=== PATIENT | female | born 1985 | race Caucasian/White ===

== ENCOUNTER 2021-11-09 10:35 | Emergency (ER) | payer BC, SELFPAY ==
--- NOTE | 2021-11-09 11:09 | ED.URI ---
HPI - URI/Sore Throat General Stated Complaint: sorethroat Source: patient and RN notes reviewed Mode of arrival: ambulatory Limitations: no limitations History of Present Illness MD elicited complaint: cough and sore throat Related Data Allergies Allergy/AdvReac Type Severity Reaction Status Date / Time No Known Allergies Allergy Verified 07/09/21 13:52 Review of Systems Review of Systems: CONSTITUTIONAL: Denies malaise, chills, sweats, or fever. EYES: Denies visual changes, redness, or discharge. ENT: Reports rhinorrhea, congestion, sinus pain, otalgia and sore throat. CARDIOVASCULAR: Denies chest pain, palpitations, or edema. RESPIRATORY: Reports cough. Denies dyspnea. GASTROINTESTINAL: Denies abdominal pain, nausea, vomiting, diarrhea SKIN: Denies rash or itching. MUSCULOSKELETAL: Denies myalgia. NEUROLOGIC: Denies headache. All systems reviewed & are unremarkable except as noted in HPI and below PMFSH Past Medical History Medical History Anxiety Depression HLD (hyperlipidemia) HTN (hypertension), benign Surgical History Surgical History History of cardiac radiofrequency ablation History of delivery History of cholecystectomy Social History Social History Second hand tobacco smoke exposure: No Alcohol intake: current Drinks per week: 4 Substance use: former Substance use type: does not use and marijuana Last use: daily Gender identity (if verbalized by the patient): Female Comments At time of signature, agree with nursing past medical, surgical, social and family history. There is no relevant family history pertinent to the presenting complaint Exam Narrative: GENERAL: Well-appearing, well-nourished, and in no acute distress. HEAD: Normocephalic EYES: PERRLA, conjunctivae clear ENT: Nares clear, turbinates edematous and erythematous, clear discharge. Mucous membranes moist. TM pearly cardoso with dull light reflex bilaterally; no tragal tenderness. Oropharynx not erythematous without lesions. Tonsils not enlarged and without exudate, no drooling, no hoarseness, no trismus, uvula midline. NECK: Supple. No lymphadenopathy CHEST: Clear to auscultation, breath sounds equal. No wheezing, rhonchi, rales, or stridor. No respiratory distress, speaks in full sentences. HEART: Regular rate and rhythm. No murmur heard. SKIN: Warm, dry, no rash. NEURO: Alert and oriented x3. PSYCH: Normal mood and affect Course Course Emergency Course: Patient is aware of diagnosis, understands and agrees to treatment plan. Anticipatory guidance given. Patient agrees to follow-up as directed and is aware of reasons to seek care at the emergency department. Portions of this record may have been created with voice recognition software Level of Care: Express Care Visit Vital Signs Vital signs: Reviewed. MDM - URI/Sore Throat MDM Narrative Medical decision making narrative: Differential diagnosis considered: Wilson virus, strep pharyngitis, allergic rhinitis, upper respiratory tract infection, sinusitis, rhinosinusitis, nasopharyngitis. viral pharyngitis, otitis media, otitis externa, pneumonia, bronchitis, viral cough syndrome, viral syndrome, and influenza. Exam findings show no acute concerns or changes; patient is non-toxic appearing and is in no distress. Patient is appropriate for outpatient treatment and follow-up. Lab Data Attestation: I reviewed the patient's lab results. Critical Care Time Critical Care Time Critical Care Time: No Discharge Plan Discharge Prescriptions: No Action labetalol 200 mg tablet 200 mg PO BID Qty: 1 RF: 0 amlodipine 5 mg tablet 5 mg PO DAILY Qty: 30 RF: 2 meclizine 25 mg tablet 25 mg PO BID PRN (Reason: motion sickness) Qty: 30 RF: 0
[2021-11-09 11:15] VITALS: BP 115/78; PULSE 94; RESP 18; TEMP 37.3; O2SAT 99
== END 2021-11-09 11:47 | disposition left against medical advice (07) ==
PROVIDERS: Emergency Provider Internal Medicine Hematology & Oncology; PCP Physician Assistant
DX: Z53.21 Procedure and treatment not carried out due to patient leaving prior to being seen by health care provider (principal)
CPT/HCPCS: 99199

== ENCOUNTER 2021-12-31 15:37 | Emergency (ER) | payer BC, SELFPAY ==
[2021-12-31 15:56] VITALS: BP 138/89; PULSE 77; RESP 18; TEMP 36.8; O2SAT 98
--- NOTE | 2021-12-31 16:15 | ED.URI ---
HPI - URI/Sore Throat General Chief Complaint: Upper Respiratory Infection Stated Complaint: cough,chest congestion Time Seen by Provider: 12/31/21 16:15 Source: patient Mode of arrival: ambulatory Limitations: no limitations History of Present Illness HPI Narrative: Ms. Grissom is a 36-year-old female patient presenting to the clinic today with complaints of sinus congestion cough and chest congestion x2 weeks. She denies any fever or chills. She reports that she has been having headaches. She is currently 33 weeks . She is coughing up some yellow phlegm. States that she has intermittent shortness of breath at times however she is not currently short of breath. MD elicited complaint: cough, rhinorrhea, nasal congestion and sinus pain Related Data Home Medications Medication Instructions Recorded Confirmed aspirin 81 mg chewable tablet 2 tablet DAILY 12/31/21 12/31/21 labetalol 200 mg tablet 200 tablet TID 12/31/21 12/31/21 ondansetron HCl 4 mg tablet 4 tablet Q6-12H 12/31/21 12/31/21 vit no.95-ferrous 1 tablet PO DAILY 12/31/21 12/31/21 fumarate 28 mg-folic acid 800 mcg tablet ( Multivitamins) sertraline 50 mg tablet 50 tablet DAILY 12/31/21 12/31/21 Allergies Allergy/AdvReac Type Severity Reaction Status Date / Time No Known Allergies Allergy Verified 12/31/21 16:21 Review of Systems Review of Systems: Pertinent positives per HPI. Patient denies any fever, chills, rash, headache, visual changes, dizziness, chest pain, palpitations, nausea, vomiting, diarrhea, constipation, abdominal pain, or any urinary issues. [facility] Past Medical History Medical History Anxiety Depression HLD (hyperlipidemia) HTN (hypertension), benign Surgical History Surgical History History of cardiac radiofrequency ablation History of delivery History of cholecystectomy Social History Social History Second hand tobacco smoke exposure: No Alcohol intake: current Drinks per week: 4 Substance use: former Substance use type: does not use and marijuana Last use: daily Gender identity (if verbalized by the patient): Female Comments At the time of my signature, I reviewed and agree with the nursing past medical, surgical, social, and family history. There is no relevant family history pertinent to the patient complaint. Exam Narrative: General: Well-developed, well nourished, in no apparent distress Head: Normocephalic, atraumatic Eyes: Pupils equally round and reactive to light bilaterally, EOM intact, sclera and conjunctive clear, no discharge, lids normal Ears: TMs intact and clear, ear canals clear, no drainage, grossly hearing normal. Nose: Nares patent, no discharge, no inflammation, sinus tenderness over the maxillary and frontal sinuses Mouth: Oral pharynx without lesions or masses, good dentition, MMM. Postnasal drip Neck: Supple, trachea midline, no enlargement of anterior or posterior cervical nodes, no thyroid masses or goiter palpable. Cardio: Regular rate and rhythm, s1 and s2 normal, no murmur appreciated. Resp: Clear to auscultation bilaterally, no rhonchi, rales, wheezing or rubs Course Course Emergency Course: Portions of this record may have been created with voice recognition software. Level of Care: Express Care Visit Vital Signs Vital signs: Vital Signs Temperature 36.8 C 12/31/21 15:56 Pulse Rate 77 12/31/21 15:56 Respiratory Rate 18 12/31/21 15:56 Blood Pressure 138/89 12/31/21 15:56 Pulse Oximetry 98 12/31/21 15:56 Oxygen Delivery Room Air 12/31/21 15:56 Temperature 36.8 C 12/31/21 15:56 Pulse Rate 77 12/31/21 15:56 Respiratory Rate 18 12/31/21 15:56 Blood Pressure 138/89 12/31/21 15:56 Pulse Oximetry 98 12/31/21 15:56
== END 2021-12-31 16:29 | disposition home or self-care (01) ==
PROVIDERS: Emergency Provider Nurse Practitioner Family; PCP Family Medicine
DX: R09.82 Postnasal drip (principal); J01.00 Acute maxillary sinusitis, unspecified; E78.5 Hyperlipidemia, unspecified; I10 Essential (primary) hypertension; F41.9 Anxiety disorder, unspecified; F32.A Depression, unspecified; Z79.82 Long term (current) use of aspirin
CPT/HCPCS: 99213; G0463

== ENCOUNTER 2024-06-27 15:45 | Outpatient (CLI) | payer OTHER, SELFPAY ==
--- NOTE | ~2024-06-27 | XR_ITS ---
XR hand LT min 3V Ordering provider: Za Mari PA-C History: . M79.645 - Pain in left finger(s) . Comparison: None. FINDINGS: BONES: No acute fracture or dislocation. JOINT SPACES: Well maintained. SOFT TISSUES: Unremarkable. IMPRESSION: No acute osseous abnormality left hand. Reviewed, dictated and finalized at location A. [facility] DAU[facility]
== END 2024-06-27 15:46 | disposition home or self-care (01) ==
LOC: MICIMG 15:45
PROVIDERS: PCP Family Medicine; Visit Provider Physician Assistant Medical
DX: M79.645 Pain in left finger(s) (principal)
CPT/HCPCS: 73130

== ENCOUNTER 2025-01-26 07:15 | Outpatient (CLI) | payer OTHER, SELFPAY ==
--- NOTE | ~2025-01-26 | MR_ITS ---
MRI of the brain Clinical History: Multiple sclerosis Technique: Axial and sagittal T1-weighted images were acquired. These were followed by axial T2-weigh sloan, diffusion weighted, gradient, and FLAIR images. Following intravenous administration of 16 cc Mu ltiHance gadolinium, T1-weighted fat-sat imaging was performed in the axial, coronal, and sagittal pl anes. Findings: There is a tiny FLAIR hyperintense focus in the left periventricular white matter (axial FL AIR image 14). No other distinct signal abnormality identified in the remainder of the brain parenchy ma. No acute infarct, intracranial hemorrhage, or mass lesion. Ventricles and subarachnoid spaces are unremarkable. Orbits are unremarkable. Paranasal sinuses and m astoid air cells are clear. Major intracranial flow voids are intact. Sagittal midline structures are intact. No abnormal postcontrast enhancement identified. IMPRESSION: Single tiny focus of FLAIR hyperintense signal with periventricular white matter, nonspecific. Minima l demyelinating disease is a consideration, versus minimal chronic microvascular ischemic change. Reviewed, dictated and finalized at location M. IMPRESSION: Single tiny focus of FLAIR hyperintense signal with periventricular white matte r, nonspecific. Minimal demyelinating disease is a consideration, versus minima l chronic microvascular ischemic change.
--- OUTSIDE RECORDS SUMMARY | 2025-01-26 07:18 | XMS_ITS | Referral Summary ---
Author Organization [facility] Address [address] [place] [id number] Care Team Providers Care Industrial Twisting Machine Operator Name Role Phone Brad Brody MD Primary Care Provider Allergies No known active allergies Medications pravastatin (PRAVACHOL) 10 mg tablet pravastatin 10 mg tablet Active labetaloL (NORMODYNE,BRUCE DATE) 200 mg tablet Take 200 mg by mouth every morning 0 Active hydroCHLOROthia zide (HYDRODIURIL) 25 mg tablet Take 25 mg by mouth daily 0 Active sertraline (ZOLOFT) 100 mg tablet sertraline 100 mg tablet Active buPROPion SR (WELLBUTRIN SR) 150 mg 12 hr tablet Take 150 mg by mouth 2 (two) times a day Active dicyclomine (BENTYL) 10 mg capsuleIndicati ons:Irritable Bowel Syndrome TAKE 1 CAPSULE (10 MG TOTAL) BY MOUTH 4 (FOUR) TIMES A DAY NEEDED (CRAMPING, DIARRHEA) 360 capsule 0 Active Active Problems Problem Noted Date Diagnosed Date SVT (supraventricular tachycardia) 11/07/2019 Uterine rupture during labor 11/07/2019 Essential hypertension 11/07/2019 Gallstone 11/07/2019 Abdominal pain 11/07/2019 Anxiety 11/07/2019 Irritable bowel syndrome with diarrhea 0 Fecal urgency 11/07/2019 S/P ablation operation for arrhythmia 04/26/2016 History of delivery 04/26/2016 Chronic hypertension with superimposed preeclamp ronald 07/22/2014 Social History Tobacco Use Types Packs/Day Years Used Date Smoking Tobacco: Never Assessed Alcohol Use Standard Drinks/Week Comments Not Currently 0 (1 standard drink = 0.6 oz pur e alcohol) Comments Unknown Sex and Gender Information Value Date Recorded Sex Assigned at Not on file Legal Sex Female 3:06 PM CDT Gender Identity Not on file Sexual Orientation Not on file Last Filed Vital Signs Vital Sign Reading Time Taken Comments Blood Pressure 128/80 11/07/2019 9:25 AM CDT Pulse 73 11/07/2019 9:25 AM CDT Temperature 36.7 C (98 F) 11/07/2019 9:25 AM CDT Respiratory Rate - - Oxygen Saturation 95% 11/07/2019 9:25 AM CDT Inhaled Oxygen Concentration - - Weight 71.9 kg (158 lb 9.6 oz) 11/07/2019 9:25 A M CDT Height 162.6 cm (5' 4) 11/07/2019 9:25 AM CDT Body Mass Index 27.22 11/07/2019 9:25 AM CDT Plan of Treatment Not on file Insurance CHOICE PR[place] PPO [place] Care Teams Industrial Twisting Machine Operator Relationship Specialty Start Date End Date Brad Brody MD [address] [facility] [address] [place] [address] PCP - General 11/07/19
--- OUTSIDE RECORDS SUMMARY | 2025-01-26 07:18 | XMS_ITS | Clinical Summary ---
Author Organization [facility] Address [address] [place] [id number] Care Team Providers Care Ad Terminal Makeup Operator Name Role Phone Brad Brody MD [...] Chronic hypertension with superimposed preeclamp ronald 07/22/2014 Surgical History Surgery Date Site/Laterality Comments CHOLECYSTECTOMY 07/24/2014 - 07/23/[address] UDY AND ABLATION 07/24/2006 - 07/23/2007 for SVT SECTION 07/24/2014 - 07/23/2015 Medical History Medical History Date Comments Gallstones Hypertension Anxiety disorder SVT (supraventricular tachycardia) Hyperlipidemia Family History Medical History Relation Name Comments Sauceda's esophagus Father Neuromyelitis Optica Mother Relation Name Status Comments Father Alive Mother Alive Social History Tobacco Use Types Packs/Day Years Used Date Smoking Tobacco: Never Assessed Alcohol Use Standard Drinks/Week Comments Not Currently 0 (1 standard drink = 0.6 oz pur e alcohol) Comments Unknown Sex and Gender Information Value Date Recorded Sex Assigned at Not on file Legal Sex Female 3:06 PM CDT Gender Identity Not on file Sexual Orientation Not on file Obstetrics History Last Filed Vital Signs Vital Sign Reading [...] 11/07/2019 9:25 AM CDT Plan of Treatment Health Maintenance Due Date Last Done Comments Cervical Cancer Screening 1987 Depression Screening 1987 Hepatitis C Screening 1987 Varicella Vaccines (1 of 2 - 13+ 2-dose series) 02/19/2000 Hepatitis B Screening 2005 Regular Well Visit/Exam 18-64 2005 Covid-19 Vaccine ( season) 2024 05/24/2021, 09/14/2020, 08/24/2020 Influenza Vaccine (#1) 2025 , 05/04/2017, 10/04/2016, Additional history exists DTaP/Tdap/Td Vaccine (3 - Td or Tdap) 10/24/2026 10/24/2016, 07/29/2014 Pneumococcal vaccine <65 Aged Out 07/29/2014 No longer eligible based on patient's age to complete this topic HPV Vaccines Aged Out No longer eligi ble based on patient's age to complete this topic Insurance [place] [employer] [place] Care Teams Ad Terminal Makeup Operator Relationship Specialty Start Date End Date Brad Brody MD [address] [facility] [address] [place] [address] PCP - General 11/07/19
--- OUTSIDE RECORDS SUMMARY | 2025-01-26 07:18 | XMS_ITS | Clinical Summary ---
Author Organization [facility] Address [address] [place] [address] Care Team Providers Care Barrel Bung Remover And Dumper Name Role Phone Brad Brody MD Primary Care Provider [phone] Brad Brody MD Unavailable Emilie Fatima DO Unavailable Source Comments [facility],non-owned Affiliates and Associated Physician Practices is amultiple site organization consisting of ambulatory clinics and hospital sitesin [place], [place], [place] and [place]. This disclosure is being madepursuant to the Care Everywhere program and may not contain all information available regarding this patient. Last updated 18.[facility] Allergies No known active allergies Medications * Be aware that medications may not be up to date on this document. Alwaysverify current medications with the patient. labetalol (NORMODYNE; TRANDATE) 200 MG tabletIndications:C hronic hypertension affecting (HCC) Take 1 (one) tablet by mouth 3 times daily 180 tablet 2 10/09/19 22 Active citalopram (CELEXA) 10 MG tabletIndications:D epression, unspecified depression type Take 1 (one) tablet by mouth once daily 90 tablet 4 12/18/19 22 Active Additional Information Patient not taking.Reported on 02/25/2022 neomycin-polymyxin- hc (CORTISPORIN) 3.5-02121-6 otic solution 01/07/20 Active docusate sodium (COLACE) 100 MG capsule Take 1 (one) capsule by mouth once daily 60 capsule 01/22/20 Active Additional Information Patient not taking.Reported on 02/25/2022 iron polysaccharides (NIFEREX 150) 150 MG capsule Take 1 (one) capsule by mouth once daily 100 capsule 01/22/20 Active polyethylene glycol 3350 (MIRALAX) 17 GM/SCOOP powder Take 17 (seventeen) g by mouth once daily 238 g 01/22/20 Active Additional Information Patient not taking.Reported on 02/25/2022 ibuprofen (MOTRIN) 600 MG tablet Take 1 (one) tablet by mouth every 6 hours as needed for Pain 30 tablet 01/22/20 Active plus iron (NATATAB) 29-1 MG tablet Take 1 (one) tablet by mouth once daily 30 tablet 3 01/22/20 Active oxyCODONE, immediate release, (ROXICODONE) 5 MG tablet Take 1 (one) tablet by mouth every 4 hours as needed for Pain 12 tablet 01/22/20 Active Additional Information Patient not taking.Reported on 02/25/2022 acetaminophen (TYLENOL) 500 MG capsule Take 2 (two) capsules by mouth every 6 hours as needed for Fever or Pain 50 capsule 01/22/20 22 Active sertraline (Zoloft) 50 MG tabletIndications:2 5 weeks gestation of (HCC) Take 1 (one) tablet by mouth once daily 90 tablet 4 02/26/20 22 Active Active Problems Patient Care Coordination No te Formatting of this note migh t be different from the original. When patient comes in for BP check, please notify a physician for BP lower than 110/60. We may need to back off on BP meds. eGrmaine Davidson MD 08/07/2014 11:37 AM Problem Noted Date Diagnosed Date History of delivery 04/26/2016 [facility] 04/26[facility]2016 Chronic hypertension affecting 016 S/P ablation operation for arrhythmia 04/26/2016 Chronic hypertension with superimposed preeclamp ronald 07/22/2014 Supervision of high-risk 07/19/2014 Overview (07/21/2014): Dated by 6w doc US A+/I/-/-, NR GCT nl GBS pend Hypertension 07/19/2014 SVT (supraventricular tachycardia) Failed trial of labor Uterine rupture during labor Immunizations Immunization Administration Dates Next Due Path101 primary monoval ent 12+ yr 0.3mL Purple cap 05/24/2021 INFLUENZA VACCINE 05/24/2021,08/10/2016 INFLUENZA VACCINE, TRIV. (FL UZONE; FLULAVAL; FLUARIX; AFLURIA TRIVALENT; 6MO+), 0.5 ML (IIV3) 07/25/2014 MMR 01/21/2022(Deferred: Patient Condition - Patient documented as Rubella immune) PNEUMOCOCCAL PPSV23 07/29/2014 TDAP (7yrs+) 01/21/2022(Deferred: Patient Condition - Patient documented as having already recieved Tdap vaccine),10/24/2016,07/29/2014 Family History Medical History Relation Name Comments Other - Neurologic Mother NMO Aneurysm, Brain Paternal Grandfather Relation Name Status Comments Father Alive barretts esopha mireya Maternal Grandfather Alive Maternal Grandmother Alive Mother Alive neuro myletis o shanelle, optic neuritis Paternal Grandfather Paternal Grandmother Sister Alive Social History Tobacco Use Types Packs/Day Years Used Date Smoking Tobacco: Former Cigarettes Smokeless Tobacco: Former Quit: 06/12/2014 Tobacco Cessation:Counseling Given: Yes Comments:4 cigaretts/ day Alcohol Use Standard Drinks/Week Comments No 0 (1 standard drink = 0.6 oz pur e alcohol) champane rare use [place] Depression Scale Answer Date Recorded RETIRED: Total Score 2 01/21/2022 Last EPDS Self Harm Result Not on file 01/21 Comments No Sex and Gender Information Value Date Recorded Sex Assigned at Not on file Legal Sex Female 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 Gender Identity Not on file Sexual Orientation Not on file 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 Not on file Not on file Last Filed Vital Signs Vital Sign Reading Time Taken Comments Blood Pressure 120/74 02/25/2022 3:12 PM CDT Pulse 73 01/21/2022 8:55 AM CDT Temperature 36.7 C (98 F) 01/21/2022 8:55 AM CDT Respiratory Rate 16 01/21/2022 8:55 AM CDT Oxygen Saturation 98% 01/21/2022 8:55 AM CDT Inhaled Oxygen Concentration - - Weight 76.2 kg (168 lb) 02/25/2022 3:12 PM CDT Height 162.6 cm (5' 4) 02/25/2022 3:12 PM CDT Body Mass Index 28.84 02/25/2022 3:12 PM CDT Plan of Treatment Health Maintenance Due Date Last Done Comments HEPATITIS B VACCINE (1 of 3 - 19+ 3-dose series) 2006 COVID-19 VACCINE ( season) 2024 05/24/2021 DEPRESSION SCREENING 07/24/2024 INFLUENZA VACCINE (#1) 2025 , 05/04/2017, 10/04/2016, Additional history exists PAP with HPV 02/09/2026 02/09/2021 DTAP/TDAP/TD VACCINES (3 - Td or Tdap) 10/24/2026 10/24/2016, 07/29/2014 ZOSTER VACCINE (1 of 2) 2037 PNEUMOCOCCAL VACCINE Aged Out 07/29/2014 No long er eligible based on patient's age to complete this topic HIV SCREENING Completed 11/19/2021, 06/24, 02/19/2021, Additional history exists HEPATITIS C SCREENING Completed 11/25/2021, 022 HIB VACCINE Aged Out No longer eligi ble based on patient's age to complete this topic HPV VACCINE Aged Out No longer eligi ble based on patient's age to complete this topic MENINGOCOCCAL (Group B) VACCINE SHARED DECISION-MAKING Aged Out No longer eligible based on patient's age to complete this topic MENINGOCOCCAL GROUPS A/C/Y/W VACCINE Aged Out No longer eligible based on patient's age to complete this topic Procedures Procedure Name Priority Date/Time Associated Diagnosis Comments HEPATITIS C RNA QUANTITATIVE AM Draw 11/25/2021 5:07 AM CDT Abnormal liver function tests HIV-1 HIV-2 ANTIBODY + HIV P24 AG PANEL Routine 11/19/2021 25 weeks gestation of HPV DETECTION HIGH RISK ANTON Routine 02/09/2021 4:23 PM CDT 8 weeks gestation of from Last 3 Months or Most Recently Relevant to Health Maintenance Results * HEPATITIS C RNA QUANTITATIVE (11/25/2021 5:07 AM CDT) Hepatitis C RNA PCR, Interp Not detected Not detected 11/29/2021 1:14 PM CDT [facility] Blood BLOOD SPECIMEN / Unknown Lab Venipuncture / Unknown 11/25/2021 5:07 AM CDT 11/25/2021 5:43 AM CDT Narrative [facility] - 11/29/2021 1:14 PM CDT The Hepatitis C viral (HCV) RNA analysis utilized a serum sample, real-time reverse project internship PCR, and is reported as Not Detected, Detected (<12 IU/mL), Quantity (IU/mL) or >30,000,000 IU/mL. The limit of quantitation of the assay is 12 IU/mL (100% of samples with this HCV RNA level were detected). The linear range is from 12 IU/mL to 30,000,000 IU/mL. Values less than 12 IU/mL are reported as Detected (<12 IU/mL). Values greater than 30,000,000 IU/mL are reported as >30,000,000 IU/mL. The detection/quantitation of HCV RNA in serum is based on the isolation of HCV RNA with reverse project internship of genomic HCV RNA followed by real-time PCR in the presence of an unrelated RNA internal control. The internal control ensures that RNA is isolated, and that no general significant inhibitors of the RT-PCR process are present. The analysis was performed using a U.S. FDA approved test methodology ([employer] Real Time HCV). us Vazquez Foster MD LAB - CHEMISTRY ORDERABLES Fin al Result [facility] [address] [place] [address], [facility] [phone] * HIV-1 HIV-2 ANTIBODY + HIV P24 AG PANEL (11/19/2021) Pathologist [facility] HIV Screen 4th Generation w Reflex NON-REACT MICHAEL NON-REACT MICHAEL QUEST Comment: HIV-1 antigen and HIV-1/HIV-2 antibodies were not detected. There is no laboratory evidence of HIV infection. PLEASE NOTE: This information has been disclosed to you from records whose confidentiality may be protected by state law. If your state requires such protection, then the state law prohibits you from making any further disclosure of the information without the specific written consent of the person to whom it pertains, or as otherwise permitted by law. A general authorization for the release of medical or other information is NOT sufficient for this purpose. For additional information please refer to http://education.Viacor/faq/FYP024 (This link is being provided for informational/ educational purposes only.) The performance of this assay has not been clinically validated in patients less than 2 years old. Test Performed at: [facility] [address] [place] [address] DARRIN CHRISTENSEN DO,MPH Blood BLOOD SPECIMEN / Unknown 11/19/2021 11/19/2021 12:42 PM CDT Andie Villarreal MD LAB - CHEMISTRY ORDERABLES F inal Result [facility] [address] [place] [address] * HPV DETECTION HIGH RISK ANTON (02/09/2021 4:23 PM CDT) Pathologist [facility] High Risk Human Papilloma Result Not detected Not detected 02/10/2021 4:29 PM CDT [facility] High Risk Human Papilloma Interp 02/10/2021 4:29 PM CDT [facility] Comment:High Risk Human Christopher lloma Virus was Not Detected. Pathology/Cytolo gy MISCELLANEOUS SAMPLES / Unknown 02/09/2021 4:23 PM CDT 02/10/2021 11:53 AM CDT Narrative [facility] - 02/10/2021 4:29 PM CDT Nucleic acid isolated from the specimen was analyzed with a nucleic acid amplification test (FDA approved Gen-Probe HPV Assay) to detect high risk human papilloma virus (Types: 16, 18, 31, 33, 35, 39, 45, 51, 52, 56, 58, 59, 66, and 68). The reference range is Not Detected. Comment: These test results should not be used as the sole basis for clinical assessment and treatment of patients. These results should always be correlated with other available data (cytology, histology, and clinical information). Gee Holder MD LAB - MICROBIOLOGY ORDERABLES Final Result [facility] [address] [facility] [place] [address], [facility] [phone] from Last 3 Months or Most Recently Relevant to Health Maintenance Insurance ANTHEM ANTHEM Member Subscriber Plan / Payer (Ef fective 2020-Present) Name:Marlyn oHffmann Relation to Subscriber:Self Name:Marlyn Hoffmann Payer ID:[id number] (NAIC) Type:PPO Address: [address] [place] [address] ANTHEM Member Subscriber Plan / Payer (Ef fective 2020-Present) Name:Marlyn Hoffmann Relation to Subscriber:Self Name:Marlyn Hoffmann Payer ID:[id number] (NAIC) Type:PPO Address: [address] [place] [id number] Advance Directives * Full Code (Latest Code Status on File) Date Activated Date Inactivated Comments 01/19/2022 6:52 AM 01/21/2022 4:47 PM * Full Code Date Activated Date Inactivated Comments 11/24/2021 1:17 PM 11/26/2021 4:23 PM * Full Code Date Activated Date Inactivated Comments 10/20/2016 10:06 AM 10/24/2016 6:24 PM * Full Code Date Activated Date Inactivated Comments 07/27/2016 3:24 PM 07/27/2016 6:01 PM * Full Code Date Activated Date Inactivated Comments 07/26/2014 4:41 PM 07/31/2014 3:44 PM Care Teams Barrel Bung Remover And Dumper Relationship Specialty Start Date End Date Brad Brody MD [address] [place] [address] PCP - General Family Medicine 01/19/22 Brad Brody MD [address] [place] [address] 01/19/22 Emilie Fatima DO [address] [facility] [address] [place] [address] Cardiovascular Disease 09/24/21
== END 2025-01-26 07:16 | disposition home or self-care (01) ==
PROVIDERS: PCP Family Medicine; Visit Provider Psychiatry & Neurology Neurology
DX: G35 Multiple sclerosis (principal); Z86.73 Personal history of transient ischemic attack (TIA), and cerebral infarction without residual deficits; E78.5 Hyperlipidemia, unspecified; Z86.79 Personal history of other diseases of the circulatory system
CPT/HCPCS: 70553; A9577

== ENCOUNTER 2025-02-28 08:07 | Outpatient (CLI) | payer OTHER, SELFPAY ==
--- OUTSIDE RECORDS SUMMARY | 2025-02-28 08:11 | XMS_ITS | Clinical Summary ---
Author Organization [facility] Address [address] [place] [id number] Care Team Providers Care Knifeman Name Role Phone Brad Brody MD Primary [...] Screening 2005 Regular Well Visit/Exam 18-64 2005 HPV Vaccines (1 - 3-dose SCDM series) 2014 Covid-19 Vaccine ( season) 2024 05/24/2021, 09/14/2020, 08/24/2020 Influenza Vaccine (#1) 2025 , 05/04/2017, 10/04/2016, Additional history exists DTaP/Tdap/Td Vaccine (3 - Td or Tdap) 10/24/2026 10/24/2016, 07/29/2014 Pneumococcal vaccine <65 Aged Out 07/29/2014 No longer eligible based on patient's age to complete this topic Insurance [place] Care Teams Knifeman Relationship Specialty Start Date End Date Brad Brody MD [address] [facility] [address] [place] [address] PCP - General 11/07/19
--- OUTSIDE RECORDS SUMMARY | 2025-02-28 08:11 | XMS_ITS | Patient Health Record ---
Author Organization [facility] Address [address] [facility] [address] [place] [address] Care Team Providers Care Micro Computer Data Processor Name Role Phone Ingrid Morocho Unavailable [phone] Reason For Referral No Information Medications Medication SIG (Take, Route, Frequency, Duration) Notes Start Date End Date Status GaviLyte-G 236 GM Oral *Reorder from [facility] for eRx and Interaction Alerts* 11/07/2019 Active Labetalol HCl 200 MG Oral 11/07/2019 Active Pravastatin Sodium 10 MG Oral 11/07/2019 Active Sertraline HCl 100 MG Oral 11/07/2019 Active buPROPion HCl ER (XL) 150 MG Oral 11/07/2019 Active Benzonatate 200 MG Oral 11/07/2019 Active hydroCHLOROthiazide 25 MG Oral 11/07/2019 Active Wellbutrin XL 150 MG Oral 11/07/2019 Active Dicyclomine HCl 10 MG Oral 11/07/2019 Active Plan Of Treatment No Information Insurance Providers Payer Name Payer Address Payer Phone Subscriber Number Group Number Insured Name Patient Relationship to Insured Coverage Start Date Coverage End Date Aetna Pos [address] [facility] [address] [id number] ZEINA HOFFMANN Spouse - patient is the spouse of the insured Medical (General) History Surgical History Surgery Date(Month/Year) Heart surgery SVT Ablation 07/24/2006
--- OUTSIDE RECORDS SUMMARY | 2025-02-28 08:11 | XMS_ITS | Clinical Summary ---
Author Organization [facility] [employer] Address [address] [place] [address] Care Team Providers Care Finishing Range Supervisor Name Role Phone Brad Brody MD Primary Care Provider [phone] Brad Brody MD Unavailable Emilie Fatima DO Unavailable [phone] Source Comments [facility],non-owned Affiliates and Associated Physician Practices is amultiple site organization consisting of ambulatory clinics and hospital sitesin [place], [place], [place] and [place]. This disclosure is being madepursuant to the Care Everywhere program and may not contain all information available regarding this patient. Last updated 18.[facility] [employer]) Allergies No known active allergies Medications * [...] not taking.Reported on 02/25/2022 neomycin-polymyxin- hc (CORTISPORIN) 3.5-14210-3 otic solution 01/07/20 Active docusate sodium (COLACE) [...] need to back off on BP meds. Germaine Davidson MD 08/07/2014 11:37 AM Problem Noted Date Diagnosed Date History of delivery 04/26/2016 [facility] Chronic hypertension affecting 016 S/P ablation operation for arrhythmia 04/26/2016 Chronic hypertension with superimposed preeclamp ronald 07/22/2014 Supervision of high-risk 07/19/2014 Overview (07/21/2014): Dated by 6w doc US A+/I/-/-, NR GCT nl GBS pend Hypertension 07/19/2014 SVT (supraventricular tachycardia) Failed trial of labor Uterine rupture during labor Immunizations Immunization Administration Dates Next Due PTS Physicians primary monoval ent 12+ yr 0.3mL Purple [...] oz pur e alcohol) champane rare use [place] Depression Scale Answer Date Recorded RETIRED: Total Score 2 01/21/2022 Last EPDS Self Harm Result Not on file 01/21 Comments No Sex and Gender Information Value Date Recorded Sex Assigned at Not on file Legal Sex 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 Gender Identity Not on file Sexual Orientation [...] of 3 - 19+ 3-dose series) 2006 HPV VACCINE (1 - 3-dose SCDM series) 2014 COVID-19 VACCINE (2 - season) 2024 05/24/2021 DEPRESSION SCREENING 07/24/2024 INFLUENZA [...] C RNA QUANTITATIVE (11/25/2021 5:07 AM CDT) Pathologist [facility] Hepatitis C RNA PCR, Interp Not detected Not detected 11/29/2021 1:14 PM CDT [facility] Blood BLOOD SPECIMEN / Unknown Lab Venipuncture / Unknown 11/25/2021 5:07 AM CDT 11/25/2021 5:43 AM CDT Narrative [facility] - 11/29/2021 1:14 PM CDT The Hepatitis C viral (HCV) RNA analysis utilized a serum sample, real-time reverse imagery analyst PCR, and is reported as Not Detected, [...] the isolation of HCV RNA with reverse imagery analyst of genomic HCV RNA followed by real-time PCR in the presence of an unrelated RNA internal control. The internal control ensures that RNA is isolated, and that no general significant inhibitors of the RT-PCR process are present. The analysis was performed using a U.S. FDA approved test methodology ([employer] Real Time HCV). us Vazquez Foster MD LAB - CHEMISTRY ORDERABLES Fin al Result [facility] [address] [place] [address], [facility] [phone] * HIV-1 HIV-2 ANTIBODY + HIV P24 AG PANEL (11/19/2021) Pathologist [facility] HIV Screen 4th Generation w Reflex NON-REACT [...] purpose. For additional information please refer to http://education.Mitro/faq/IFM720 (This link is being provided for informational/ educational purposes only.) The performance of this assay has not been clinically validated in patients less than 2 years old. Test Performed at: [facility] [address] [place] [address] DARRIN CHRISTENSEN DO,MPH Blood BLOOD SPECIMEN / Unknown 11/19/2021 11/19/2021 12:42 PM CDT Andie Villarreal MD LAB - CHEMISTRY ORDERABLES F inal Result [facility] [address] [place] [address] * HPV DETECTION HIGH RISK ANTON (02/09/2021 4:23 PM CDT) Pathologist [facility] High Risk Human Papilloma Result Not detected Not detected 02/10/2021 4:29 PM CDT [facility] High Risk Human Papilloma Interp 02/10/2021 4:29 PM CDT [facility] Comment:High Risk Human Christopher lloma Virus was Not Detected. Pathology/Cytolo gy MISCELLANEOUS SAMPLES / Unknown 02/09/2021 4:23 PM CDT 02/10/2021 11:53 AM CDT Narrative [facility] - 02/10/2021 4:29 PM CDT [...] MD LAB - MICROBIOLOGY ORDERABLES Final Result [facility] [address] [facility] [place] [address], [facility] [phone] from Last 3 Months or Most Recently Relevant to Health Maintenance Insurance ANTHEM ANTHEM Member Subscriber Plan / Payer ( fective 2020-Present) Name:Marlyn Hoffmann Relation to Subscriber:Self Name:Marlyn Hoffmann Payer ID:[id number] (NAIC) Type:PPO Address: [address] ANTHEM Member Subscriber Plan / Payer (Ef fective 2020-Present) Name:Marlyn Hoffmann Relation to Subscriber:Self Name:Marlyn Hoffmann Payer ID:[id number] (NAIC) Type:PPO Address: [address] Advance Directives * Full Code (Latest Code [...] 4:41 PM 07/31/2014 3:44 PM Care Teams Finishing Range Supervisor Relationship Specialty Start Date End Date Brad Brody MD [address] [place] [address] PCP - General Family Medicine 01/19/22 Brad Brody MD [address] [place] [address] 01/19/22 Emilie Fatima DO [address] [facility] [address] [place] [address] Cardiovascular Disease 09/24/21
--- NOTE | 2025-02-28 08:16 | ECHO_ITS ---
Patient Info Name: Veronica Grissom Age: 40 years : 1985 Gender: Female Ht: 64 in Wt: 175 lbs BSA: 1.92 m2 HR: 59 bpm BP: 117 / 90 mmHg Heart Rhythm: Sinus Rhythm Technical Quality: Good Exam Date: 02/28/2025 8:24 AM Patient Status: O Admit Date: 02/28/2025 Exam Type: CA echo dop bubble study w con Complete two-dimentional, color flow and Doppler transthoracic echocardiogram is performed with agitated saline and with contrast to opacify the left ventricle and to improve the delineation of the left ventricle endocardial borders. Astrobiologist: Terri Molina Attending Provider: Ernst Villagran Contrast/Agitated Saline Contrast/Ag. Saline: Agitated Saline Amount: 20.00 ml Existing IV Access: No New IV Access: Left Site Condition: IV removed Contrast/Ag. Saline: Definity Amount: 1.50 ml Administered By: Terri Molina New IV Access: Left Site Condition: IV removed Summary 1. Definity contrast administered improved wall motion interpretation. 2. Left ventricular chamber dimension is normal. 3. Left ventricular systolic function is normal, estimated at 60-65. 4. The left ventricular diastolic function is normal. 5. E/e' 10 is minimally elevated. 6. Left atrial chamber dimension is mildly enlarged. 7. Agitated saline injection with and without valsalva maneuver opacified right side cardiac chambers with several bubbles shunt to left side cardiac chambers and significant bubbles with valsalva shunted to left side chambers suggestive of patent foramen ovale. 8. There is trace mitral valve regurgitation. 9. No pulmonary hypertension, estimated pulmonary arterial systolic pressure is 21 mmHg. Left Ventricle E/e' 10 is minimally elevated. Left ventricular chamber dimension is normal. Left ventricular systolic function is normal, estimated at 60-65. The left ventricular diastolic function is normal. Definity contrast administered improved wall motion interpretation. Right Ventricle Right ventricular chamber dimension is normal. Right ventricular systolic function is normal and with normal TAPSE 2.0 cm. Left Atria Left atrial chamber dimension is mildly enlarged. Right Atria Right atrial chamber dimension is normal. Atrial Septum Suspected patent foramen ovale visualized by 2D and agitated saline imaging. Agitated saline injection with and without valsalva maneuver opacified right side cardiac chambers with several bubbles shunt to left side cardiac chambers and significant bubbles with valsalva shunted to left side chambers suggestive of patent foramen ovale. Aortic Valve The aortic valve is trileaflet. There is no aortic valve stenosis. There is no aortic valve regurgitation. Pulmonic Valve There is no pulmonic regurgitation. Mitral Valve There is no mitral valve stenosis. There is trace mitral valve regurgitation. Tricuspid Valve There is no tricuspid valve regurgitation. No pulmonary hypertension, estimated pulmonary arterial systolic pressure is 21 mmHg. Pericardium/Pleural There is no pericardial effusion. Inferior Vena Cava Normal inferior vena cava with >50% collapse upon inspiration consistent with normal right atrial pressure, 5 mmHg. Aorta The aortic root size at the sinus of Valsalva is normal. Left Ventricular Outflow Tract Name Value Normal LVOT 2D LVOT Diameter 2.0 cm LVOT Doppler LVOT Peak Velocity 110 cm/s LVOT Peak Gradient 5 mmHg LVOT Mean Gradient 3 mmHg LVOT VTI 27 cm LVOT VTI/AV VTI Ratio 0.8 LVOT Stroke Volume 80 ml LVOT CO 4.0 l/min LVOT CI 2.1 l/min/m2 Pulmonic Valve Name Value Normal RVOT Doppler RVOT Peak Velocity 79 cm/s RVOT Peak Gradient 2 mmHg PV Doppler PV Peak Velocity 103 cm/s PV Peak Gradient 4 mmHg Mitral Valve Name Value Normal MV Diastolic Function MV E Peak Velocity 119 cm/s MV A Peak Velocity 45 cm/s MV E/A 2.6 MV Decel Time (PW) 163 ms MV Annular TDI MV E/e' (Septal) 14.0 MV E/e' (Lateral) 8.5 MV E/e' (Average) 11.3 Tricuspid Valve Name Value Normal TV Regurgitation Doppler TR Peak Velocity 197 cm/s TR Peak Gradient 16 mmHg Estimated PAP/RSVP RA Pressure 5 mmHg <=5 PA Systolic Pressure 21 mmHg <36 RV Systolic Pressure 21 mmHg <36 TV Annular TDI TV Lateral Iva s' Velocity 13.6 cm/s >=9.5 Aorta Name Value Normal Ascending Aorta Ao Root Diameter (MM) 2.4 cm Ao Root Diam Index (MM) 1.2 cm/m2 Aortic Valve Name Value Normal AV Doppler AV Peak Velocity 160 cm/s AV Peak Gradient 10 mmHg AV Mean Gradient 5 mmHg AV VTI 31 cm AV Area (Cont Eq VTI) 2.5 cm2 >=3.0 AV Area (Cont Eq Jose) 2.1 cm2 AV DI (Jose) 0.69 AV Regurgitation 2D LVOT Area 3.0 cm2 Ventricles Name Value Normal LV Dimensions 2D/MM IVS Diastolic Thickness (2D) 0.7 cm 0.6-1.0 LVID Diastole (2D) 5.3 cm 3.8-5.2 LVIW Diastolic Thickness (2D) 0.7 cm 0.6-0.9 LVID Systole (2D) 3.2 cm 2.2-3.5 LVOT Diameter 2.0 cm LV Mass (2D Cubed) 127.63 g 67.00-162.00 LV Mass Index (2D Cubed) 67 g/m2 43-95 Relative Wall Thickness (2D) 0.27 <=0.42 LV Fractional Shortening/Ejection Fraction 2D/MM LV Fractional Shortening (2D) 40 % 27-45 LV EF (2D Teichholz) 70 % LV Diastolic Volume (4C MOD) 59 ml LV EF (4C MOD) 66 % LV Diastolic Volume (2C MOD) 63 ml LV EF (2C MOD) 68 % LV Diastolic Volume (BP MOD) 63 ml 46-106 LV Diastolic Volume Index (BP MOD) 33 ml/m2 29-61 LV Systolic Volume (BP MOD) 20 ml 14-42 LV Systolic Volume Index (BP MOD) 11 ml/m2 8-24 LV EF (BP MOD) 68 % 54-74 LV Diastolic Length (4C) 7.5 cm LV Systolic Length (4C) 5.9 cm LV Stroke Volume (4C MOD) 39 ml Atria Name Value Normal LA Dimensions LA Dimension (MM) 4.0 cm 2.7-3.8 LA Volume (4C A-L) 70 ml LA Volume (BP A-L) 71 ml RA Dimensions RA Area (4C) 13.1 cm2 <=18.0 Report Signatures
[2025-02-28] MEDS: PERFLUTREN LIPID MICROSPHERES 1.5 ML VIAL DILUTED TO 10 ML TOTAL VOLUME IV PUSH (09:20)
--- NOTE | 2025-02-28 09:27 | IVDEFINITY ---
Prior to administration of IV Definity the patient was educated on the risks and benefits of the imaging enhancing agent including potential adverse side effects. The patient verbalized understanding. Allergies were verified. No exclusion criteria were identified and at least one of the following inclusion criteria were met: 1) physician request, 2) patient technically difficult to image (per the [place] [employer] guidelines of two or more segments not discernable within the apical view), or 3) questionable left ventricular function. ?
== END 2025-02-28 08:08 | disposition home or self-care (01) ==
PROVIDERS: PCP Family Medicine; Visit Provider Physician Assistant
DX: R93.1 Abnormal findings on diagnostic imaging of heart and coronary circulation (principal); R94.31 Abnormal electrocardiogram [ECG] [EKG]; Z86.73 Personal history of transient ischemic attack (TIA), and cerebral infarction without residual deficits
CPT/HCPCS: 96375; C8929; Q9957